=== PATIENT | female | born 1960 | race African-American/Black ===

== ENCOUNTER 2016-08-30 13:40 | Emergency (ER) | payer MEDICARE, MEDICAID ==
[~2016-08-30] VITALS: Ht 162.6 cm; Wt 129.0 kg
[~2016-08-30 13:40] MED LIST: DIVA-18 PO; OXYB5TAB11 PO
[2016-08-30 18:30] VITALS: BP 130/71
== END 2016-08-30 20:15 | disposition home or self-care (01) ==
LOC: ER 13:53
DX: M25.561 Pain in right knee (principal); G89.29 Other chronic pain; E11.9 Type 2 diabetes mellitus without complications; Z98.890 Other specified postprocedural states
CPT/HCPCS: 29505; 73562; 99284

== ENCOUNTER 2016-09-06 19:08 | Emergency (ER) | payer MEDICARE, MEDICAID ==
[~2016-09-06] VITALS: Ht 165.1 cm; Wt 127.0 kg
[2016-09-06] MEDS ORDERED: KETOROLAC 60MG/2ML VIAL IM ONE (22:45)
[2016-09-07 00:23] VITALS: BP 134/72
== END 2016-09-07 01:55 | disposition home or self-care (01) ==
LOC: ER 19:09
DX: M25.561 Pain in right knee (principal); G89.29 Other chronic pain; Z79.899 Other long term (current) drug therapy; J45.909 Unspecified asthma, uncomplicated; E11.9 Type 2 diabetes mellitus without complications
CPT/HCPCS: 73562; 96372; 99284; J1885; L1830

== ENCOUNTER 2016-09-22 20:30 | Emergency (ER) | payer MEDICARE, MEDICAID ==
[~2016-09-22] VITALS: Ht 165.1 cm; Wt 128.0 kg
[2016-09-22 21:26] VITALS: BP 134/76
== END 2016-09-22 21:40 | disposition left against medical advice (07) ==
LOC: ER 20:31
DX: M79.604 Pain in right leg (principal); Z79.899 Other long term (current) drug therapy; J45.909 Unspecified asthma, uncomplicated; E11.9 Type 2 diabetes mellitus without complications; Z53.21 Procedure and treatment not carried out due to patient leaving prior to being seen by health care provider

== ENCOUNTER 2016-10-03 09:05 | Emergency (ER) | payer MEDICARE, MEDICAID ==
[~2016-10-03] VITALS: Ht 162.6 cm; Wt 105.0 kg
[2016-10-03 09:07] VITALS: BP 142/89
[2016-10-03] MEDS ORDERED: SODIUM CHLORIDE 0.9% 1,000 ML IV ONE (09:44)
[2016-10-03] MEDS ORDERED: ONDANSETRON HCL 4MG/2ML VIAL IV ONE (09:45)
[2016-10-03 10:09] LABS: BASOPHILS % 1.3 % (0.0-2.0); EOSINOPHILS % 2.5 % (0.0-5.0); HEMOGLOBIN. 11.6 g/dL (12.0-16.0); LYMPHOCYTES % 49.4 % (20.0-50.0); MEAN CORPUSCULAR HEMOGLOBIN 28.4 pg (28.0-32.0); NEUTROPHILS % 39.8 % (40.0-76.0); PLATELET 268 x1000/uL (130-400); RED BLOOD CELL COUNT 4.07 mill/uL (4.2-5.4); RED CELL DISTRIBUTION WIDTH 15.7 % (11.6-14.6)
[2016-10-03 10:27] LABS: CARBON DIOXIDE 24 mEq/L (21-32); CHLORIDE 105 mEq/L (98-107); ETHANOL BLOOD < 10 mg/dL
[2016-10-03 11:28] LABS: CLARITY URINE CLEAR (CLEAR); COLOR URINE YELLOW (YELLOW); GLUCOSE URINE NEGATIVE (NEGATIVE); KETONES URINE NEGATIVE (NEGATIVE); LEUKOCYTE ESTERASE URINE NEGATIVE (NEGATIVE); NITRITE URINE POSITIVE (NEGATIVE); OCCULT BLOOD URINE NEGATIVE (NEGATIVE); PROTEIN URINE NEGATIVE (NEGATIVE); SPECIFIC GRAVITY URINE 1.026 (1.005-1.030); UROBILINOGEN URINE 0.2 E.U./dL (0.2-1.0)
[2016-10-03 11:57] LABS: *AMPHETAMINES SCREEN URINE NEGATIVE (NEGATIVE); *BARBITURATES SCREEN URINE NEGATIVE (NEGATIVE); *BENZODIAZEPINES SCREEN URINE NEGATIVE (NEGATIVE); *COCAINE SCREEN URINE NEGATIVE (NEGATIVE); CANNABINOID URINE SCREEN NEGATIVE (NEGATIVE); METHADONE URINE SCREEN NEGATIVE (NEGATIVE); OPIATES URINE SCREEN NEGATIVE (NEGATIVE); PHENCYCLIDINE URINE SCREEN NEGATIVE (NEGATIVE)
== END 2016-10-03 14:00 | disposition left against medical advice (07) ==
LOC: ER 09:21
DX: R45.851 Suicidal ideations (principal); R53.1 Weakness; R11.2 Nausea with vomiting, unspecified; E11.9 Type 2 diabetes mellitus without complications; J45.909 Unspecified asthma, uncomplicated
CPT/HCPCS: 36415; 80048; 80305; 81001; 84443; 85025; 93005; 96361; 96374; 99285; G0482; J2405; J7030

== ENCOUNTER 2016-12-12 15:19 | Emergency (ER) | payer MEDICARE, MEDICAID ==
[~2016-12-12] VITALS: Ht 170.2 cm; Wt 120.0 kg
[2016-12-12] MEDS ORDERED: KETOROLAC 60MG/2ML VIAL IM ONE (16:15)
[2016-12-12] MEDS ORDERED: METHOCARBAMOL 500MG TABLET PO ONE (16:15)
[2016-12-12 18:21] VITALS: BP 138/58
== END 2016-12-12 18:55 | disposition left against medical advice (07) ==
LOC: ER 15:46
DX: M79.661 Pain in right lower leg (principal); Z91.81 History of falling; E11.9 Type 2 diabetes mellitus without complications; J45.909 Unspecified asthma, uncomplicated
CPT/HCPCS: 99283; J1885

== ENCOUNTER 2017-05-18 10:52 | Emergency (ER) | payer BC, MEDICAID ==
[~2017-05-18] VITALS: Ht 165.1 cm; Wt 113.0 kg
[2017-05-18 12:42] VITALS: BP 154/78
== END 2017-05-18 13:51 | disposition left against medical advice (07) ==
LOC: ER 10:52
DX: M79.604 Pain in right leg (principal); Z53.21 Procedure and treatment not carried out due to patient leaving prior to being seen by health care provider

== ENCOUNTER 2017-06-15 00:02 | Emergency (ER) | payer MEDICARE, MEDICAID ==
[~2017-06-15] VITALS: Ht 162.6 cm; Wt 81.0 kg
[2017-06-15] MEDS ORDERED: KETOROLAC 30MG/ML VIAL IM ONE (06:45)
[2017-06-15 07:06] VITALS: BP 111/55
== END 2017-06-15 07:08 | disposition home or self-care (01) ==
LOC: ER 00:02
DX: M54.41 Lumbago with sciatica, right side (principal); E11.9 Type 2 diabetes mellitus without complications; J45.909 Unspecified asthma, uncomplicated; Z98.890 Other specified postprocedural states
CPT/HCPCS: 81025; 82962; 96372; 99283; J1885

== ENCOUNTER 2017-07-08 08:37 | Emergency (ER) | payer MEDICARE, MEDICAID ==
[~2017-07-08] VITALS: Ht 165.1 cm; Wt 77.0 kg
[2017-07-08 14:04] VITALS: BP 145/85
== END 2017-07-08 14:08 | disposition home or self-care (01) ==
LOC: ER 09:04
DX: J06.9 Acute upper respiratory infection, unspecified (principal); E11.9 Type 2 diabetes mellitus without complications; J45.909 Unspecified asthma, uncomplicated
CPT/HCPCS: 71045; 99283

== ENCOUNTER 2017-12-04 18:37 | Emergency (ER) | payer MEDICARE, MEDICAID ==
[~2017-12-04] VITALS: Ht 165.1 cm; Wt 91.0 kg
[2017-12-04] MEDS ORDERED: SODIUM CHLORIDE 0.9% 1,000 ML IV ONE (21:00)
[2017-12-04] MEDS ORDERED: DIPHENHYDRAMINE 50MG/ML VIAL IV ONE (21:15)
[2017-12-04] MEDS ORDERED: METOCLOPRAMIDE HCL 10MG/2ML VIAL IV ONE (21:15)
[2017-12-04] MEDS ORDERED: MECLIZINE 25MG TABLET PO ONE (21:15)
[2017-12-04] MEDS ORDERED: ACETAMINOPHEN 325MG TABLET PO ONE (21:15)
[2017-12-04 21:48] LABS: BASOPHILS % 0.9 % (0.0-2.0); EOSINOPHILS % 1.2 % (0.0-5.0); HEMATOCRIT. 36.6 % (36.0-48.0); HEMOGLOBIN. 12.1 g/dL (12.0-16.0); MEAN CORPUSCULAR HEMOGLOBIN 31.1 pg (28.0-32.0); MEAN CORPUSCULAR VOLUME 94.4 fL (81.0-99.0); MEAN PLATELET VOLUME 9.7 fl (7.4-10.4); MONOCYTES % 6.4 % (2.0-8.0); NEUTROPHILS % 36.5 % (40.0-76.0); PLATELET 194 x1000/uL (130-400); RED BLOOD CELL COUNT 3.88 mill/uL (4.2-5.4); RED CELL DISTRIBUTION WIDTH 13.2 % (11.6-14.6)
[2017-12-04 21:51] LABS: CHLORIDE 109 mEq/L (98-107)
[2017-12-05 05:39] VITALS: BP 130/67
== END 2017-12-05 05:41 | disposition home or self-care (01) ==
LOC: ER 18:37
DX: R51 Headache (principal); R42 Dizziness and giddiness; E11.9 Type 2 diabetes mellitus without complications
CPT/HCPCS: 36415; 70450; 80053; 82962; 85025; 93005; 96361; 96374; 96375; 99285; J1200; J2765; J7030; J8597

== ENCOUNTER 2018-04-03 00:01 | Inpatient (IN) | payer MEDICARE, MEDICAID ==
[~2018-04-03] VITALS: Ht 165.1 cm; Wt 95.7 kg
[2018-04-03] MEDS ORDERED: ASPIRIN 81MG TABLET PO ONE (02:45)
[2018-04-03 03:35] LABS: BASOPHILS % 0.5 % (0.0-2.0); EOSINOPHILS % 1.9 % (0.0-5.0); HEMATOCRIT. 35.7 % (36.0-48.0); HEMOGLOBIN. 11.8 g/dL (12.0-16.0); LYMPHOCYTES % 31.8 % (20.0-50.0); MEAN CORPUSCULAR HEMOGLOBIN 31.7 pg (28.0-32.0); MEAN CORPUSCULAR VOLUME 95.6 fL (81.0-99.0); MEAN PLATELET VOLUME 8.8 fl (7.4-10.4); MONOCYTES % 6.9 % (2.0-8.0); NEUTROPHILS % 58.9 % (40.0-76.0); PLATELET 245 x1000/uL (130-400); RED BLOOD CELL COUNT 3.74 mill/uL (4.2-5.4); RED CELL DISTRIBUTION WIDTH 13.5 % (11.6-14.6)
[2018-04-03 03:39] LABS: CHLORIDE 107 mEq/L (98-107)
[2018-04-03 04:39] LABS: PARTIAL THROMBOPLASTIN TIME 22.1 sec (23.4-31.0); PROTHROMBIN TIME 10.3 sec (9.1-11.1)
[2018-04-03] MEDS ORDERED: NITROGLYCERIN 0.4MG TABLET SL SL SCH (06:04)
[2018-04-03] MEDS ORDERED: CLONIDINE 0.1MG TABLET PO PRN (07:15)
[2018-04-03] MEDS ORDERED: ACETAMINOPHEN 325MG TABLET PO PRN (07:15)
[2018-04-03] MEDS ORDERED: ENOXAPARIN 40MG/0.4ML SYR SUBCUT SCH (07:15)
[2018-04-03] MEDS ORDERED: MAGNESIUM/ALUMINUM HYDROXIDE/SIMETHICONE 30ML UDC PO PRN (07:15)
[2018-04-03] MEDS ORDERED: HYDROCODONE/ACETAMINOPHEN 5/325MG TABLET PO PRN (07:15)
[2018-04-03] MEDS ORDERED: DOCUSATE SODIUM 100MG CAPSULE PO PRN (07:15)
[2018-04-03] MEDS ORDERED: ONDANSETRON HCL 4MG/2ML INJ IV PRN (07:15)
[2018-04-03 08:50] VITALS: BP 110/63
[2018-04-03] MEDS ORDERED: MORPHINE SULFATE 4 MG/ML CPJ (NOT FOR IM USE) IV PRN (09:15)
[2018-04-03 10:00] VITALS: BP 115/56
[2018-04-03] MEDS: ASPIRIN 81MG EC TABLET PO SCH (11:37)
[2018-04-03] MEDS: AMLODIPINE 10MG TABLET PO SCH (11:38)
[2018-04-03 12:00] VITALS: BP 116/64
[2018-04-03 16:00] VITALS: BP 136/69
[2018-04-03 16:24] LABS: CREATINE KINASE 207 IU/L (26-192)
[2018-04-03] MEDS: ENOXAPARIN 30MG/0.3ML SYR SUBCUT SCH (18:00)
[2018-04-03 20:00] VITALS: BP 106/52
[2018-04-03] MEDS: DIVALPROEX SODIUM 500MG ER TABLET PO SCH (21:00)
[2018-04-03] MEDS: OXYBUTYNIN CHLORIDE 5MG TABLET PO SCH (21:28)
[2018-04-04] VITALS: BP 98/57
[2018-04-04 00:54] LABS: CREATINE KINASE 127 IU/L (26-192)
[2018-04-04 04:00] VITALS: BP 112/73
[2018-04-04] MEDS: ENOXAPARIN 30MG/0.3ML SYR SUBCUT SCH (06:29)
[2018-04-04] MEDS ORDERED: REGADENOSON 0.4 MG/5 ML IV ONE (07:15)
[2018-04-04 07:39] LABS: BASOPHILS % 0.7 % (0.0-2.0); EOSINOPHILS % 1.6 % (0.0-5.0); HEMATOCRIT. 33.5 % (36.0-48.0); HEMOGLOBIN. 11.4 g/dL (12.0-16.0); LYMPHOCYTES % 54.6 % (20.0-50.0); MEAN CORPUSCULAR HEMOGLOBIN 32.4 pg (28.0-32.0); MEAN CORPUSCULAR VOLUME 95.1 fL (81.0-99.0); MEAN PLATELET VOLUME 8.9 fl (7.4-10.4); MONOCYTES % 8.1 % (2.0-8.0); PLATELET 292 x1000/uL (130-400); RED BLOOD CELL COUNT 3.52 mill/uL (4.2-5.4); RED CELL DISTRIBUTION WIDTH 13.4 % (11.6-14.6)
[2018-04-04 08:00] VITALS: BP 112/62
[2018-04-04 08:40] LABS: CHLORIDE 105 mEq/L (98-107)
[2018-04-04] MEDS: ASPIRIN 81MG EC TABLET PO SCH (08:47)
[2018-04-04] MEDS: DIVALPROEX SODIUM 500MG ER TABLET PO SCH (08:47)
[2018-04-04] MEDS: OXYBUTYNIN CHLORIDE 5MG TABLET PO SCH (08:47)
[2018-04-04] MEDS: AMLODIPINE 10MG TABLET PO SCH (08:48)
[2018-04-04 08:56] LABS: LDL CHOLESTEROL 97 mg/dL (5-100)
[2018-04-04 08:58] LABS: HDL CHOLESTEROL 62 mg/dL (40-59)
[2018-04-04 11:16] VITALS: BP 156/78
[2018-04-04 21:58] LABS: T4 FREE 0.94 ng/dL (0.76-1.46)
== END 2018-04-04 14:15 | disposition home or self-care (01) | DRG 206 ==
LOC: ER 00:01 → 7WST 06:10 → EDBEDREQTM 06:12 → EDBEDREQ 06:12 → SUPCPDRO 07:09 → ENRESERV 07:48
PROVIDERS: ADMIT Hospitalist; ATTEND Hospitalist
DX: M94.0 Chondrocostal junction syndrome [Tietze] (principal); E11.9 Type 2 diabetes mellitus without complications; I10 Essential (primary) hypertension; J45.909 Unspecified asthma, uncomplicated; E78.5 Hyperlipidemia, unspecified; R62.50 Unspecified lack of expected normal physiological development in childhood; Z79.899 Other long term (current) drug therapy; Z91.19 Patient's noncompliance with other medical treatment and regimen
CPT/HCPCS: 36415; 71045; 80061; 82550; 82962; 83036; 83880; 84439; 84443; 84484; 93005; 93306; 99285; J1650

== ENCOUNTER 2018-04-11 01:00 | Emergency (ER) | payer MEDICARE, MEDICAID ==
[~2018-04-11] VITALS: Ht 170.2 cm; Wt 91.0 kg
[2018-04-11 06:02] LABS: CLARITY URINE CLOUDY (CLEAR); COLOR URINE YELLOW (YELLOW); KETONES URINE TRACE (NEGATIVE); LEUKOCYTE ESTERASE URINE 2+ (NEGATIVE); NITRITE URINE POSITIVE (NEGATIVE); OCCULT BLOOD URINE NEGATIVE (NEGATIVE); PH URINE 5.5 (4.5-8.0); PROTEIN URINE NEGATIVE (NEGATIVE); SPECIFIC GRAVITY URINE 1.022 (1.005-1.030)
[2018-04-11] MEDS ORDERED: DIPHENHYDRAMINE 50MG/ML VIAL IV ONE (06:15)
[2018-04-11] MEDS ORDERED: SODIUM CHLORIDE 0.9% 1,000 ML IV ONE (06:15)
[2018-04-11] MEDS ORDERED: KETOROLAC 30MG/ML VIAL IV ONE (06:15)
[2018-04-11] MEDS ORDERED: METOCLOPRAMIDE HCL 10MG/2ML VIAL IV ONE (06:15)
[2018-04-11 09:17] VITALS: BP 128/79
== END 2018-04-11 09:30 | disposition home or self-care (01) ==
LOC: ER 01:51
DX: G43.909 Migraine, unspecified, not intractable, without status migrainosus (principal); G44.89 Other headache syndrome; N39.0 Urinary tract infection, site not specified; E11.9 Type 2 diabetes mellitus without complications; Z79.899 Other long term (current) drug therapy
CPT/HCPCS: 81003; 81025; 87077; 87086; 87186; 96374; 96375; 99283; J1200; J1885; J2765; J7030

== ENCOUNTER 2021-01-21 14:11 | Emergency (ER) | payer OTHER, MEDICAID ==
[~2021-01-21] VITALS: Ht 167.6 cm; Wt 113.0 kg
[~2021-01-21 14:11] MED LIST changes: -OXYB5TAB11 PO; +OXYB5TAB16 PO
[2021-01-21 16:25] LABS: CLARITY URINE CLEAR (CLEAR); COLOR URINE YELLOW (YELLOW); KETONES URINE NEGATIVE (NEGATIVE); LEUKOCYTE ESTERASE URINE NEGATIVE (NEGATIVE); NITRITE URINE NEGATIVE (NEGATIVE); OCCULT BLOOD URINE NEGATIVE (NEGATIVE); PROTEIN URINE NEGATIVE (NEGATIVE)
[2021-01-21 16:48] LABS: BASOPHILS % 0.7 % (0.0-2.0); EOSINOPHILS % 1.7 % (0.0-5.0); HEMOGLOBIN. 12.5 g/dL (12.0-16.0); LYMPHOCYTES % 46.3 % (20.0-50.0); MEAN CORPUSCULAR HEMOGLOBIN 30.1 pg (28.0-32.0); MEAN CORPUSCULAR VOLUME 89.5 fL (81.0-99.0); MONOCYTES % 6.8 % (2.0-8.0); NEUTROPHILS % 44.5 % (40.0-76.0); PLATELET 229 x1000/uL (130-400); RED BLOOD CELL COUNT 4.14 mill/uL (4.2-5.4); RED CELL DISTRIBUTION WIDTH 14.1 % (11.6-14.6)
[2021-01-21 16:55] LABS: CHLORIDE 101 mEq/L (98-107)
[2021-01-21 17:01] LABS: HCG SCREEN NEGATIVE
[2021-01-21 17:36] VITALS: BP 148/70
== END 2021-01-21 17:37 | disposition home or self-care (01) ==
LOC: ER 14:11
DX: R10.9 Unspecified abdominal pain (principal); J45.909 Unspecified asthma, uncomplicated; E11.9 Type 2 diabetes mellitus without complications; Z98.890 Other specified postprocedural states
CPT/HCPCS: 36415; 80053; 81003; 81025; 82962; 84703; 85025; 99283

== ENCOUNTER 2021-06-15 21:25 | Emergency (ER) | payer BC, MEDICAID, OTHER ==
[~2021-06-15] VITALS: Ht 167.6 cm; Wt 123.0 kg
[2021-06-15 21:30] VITALS: BP 130/74
[2021-06-16] MEDS ORDERED: ASPIRIN 81MG TABLET PO SCH (01:45)
[2021-06-16 02:17] LABS: BASOPHILS % 0.7 % (0.0-2.0); EOSINOPHILS % 1.4 % (0.0-5.0); HEMATOCRIT. 38.1 % (36.0-48.0); HEMOGLOBIN. 12.9 g/dL (12.0-16.0); LYMPHOCYTES % 43.9 % (20.0-50.0); MEAN CORPUSCULAR HEMOGLOBIN 29.8 pg (28.0-32.0); MEAN CORPUSCULAR VOLUME 87.9 fL (81.0-99.0); MEAN PLATELET VOLUME 10.5 fl (7.4-10.4); MONOCYTES % 6.7 % (2.0-8.0); NEUTROPHILS % 47.3 % (40.0-76.0); RED BLOOD CELL COUNT 4.33 mill/uL (4.2-5.4); RED CELL DISTRIBUTION WIDTH 14.3 % (11.6-14.6)
[2021-06-16 02:25] LABS: CHLORIDE 105 mEq/L (98-107)
[2021-06-16 02:30] LABS: ETHANOL BLOOD < 10 mg/dL
[2021-06-16 02:32] LABS: BETA HYDROXYBUTYRATE 0.1 mMol/L (0.0-0.3)
[2021-06-16 02:33] LABS: PLATELET 190 x1000/uL (130-400)
[2021-06-16] MEDS ORDERED: INSULIN LISPRO 100 UNITS/ML SUBCUT SCH (04:00)
== END 2021-06-16 04:59 | disposition home or self-care (01) ==
LOC: ER 21:25
DX: R07.89 Other chest pain (principal); E11.65 Type 2 diabetes mellitus with hyperglycemia; J45.909 Unspecified asthma, uncomplicated; Z98.890 Other specified postprocedural states
CPT/HCPCS: 36415; 71045; 80053; 80320; 82010; 82962; 83690; 83880; 84484; 85025; 99284; J1815; G0480

== ENCOUNTER 2021-10-13 16:38 | Emergency (ER) | payer MEDICAID, MEDICARE ==
[~2021-10-13] VITALS: Ht 167.6 cm; Wt 114.0 kg
[2021-10-13 17:08] VITALS: BP 169/93
[2021-10-13] MEDS ORDERED: HYDROCODONE/ACETAMINOPHEN 5/325MG TABLET PO ONE (17:45)
[2021-10-13] MEDS ORDERED: ACET-2708 MT (18:35)
== END 2021-10-13 19:39 | disposition home or self-care (01) ==
LOC: ER 16:38
DX: S93.491A Sprain of other ligament of right ankle, initial encounter (principal); M25.571 Pain in right ankle and joints of right foot; J45.909 Unspecified asthma, uncomplicated; E11.9 Type 2 diabetes mellitus without complications; V03.00XA Pedestrian on foot injured in collision with car, pick-up truck or van in nontraffic accident, initial encounter; Y93.01 Activity, walking, marching and hiking; Y92.488 Other paved roadways as the place of occurrence of the external cause; Z98.890 Other specified postprocedural states
CPT/HCPCS: 29515; 73610; 99283

== ENCOUNTER 2022-04-03 12:37 | Emergency (ER) | payer MEDICARE, MEDICAID ==
[~2022-04-03] VITALS: Ht 167.6 cm; Wt 125.0 kg
[~2022-04-03 12:37] MED LIST changes: +ACET-2708 MT
[2022-04-03] MEDS ORDERED: IBUPROFEN 600MG TABLET PO ONE (13:15)
[2022-04-03 13:24] VITALS: BP 135/60
[2022-04-03] MEDS ORDERED: IBUP-2029 MT (16:04)
== END 2022-04-03 17:37 | disposition home or self-care (01) ==
LOC: ER 12:37
DX: M25.571 Pain in right ankle and joints of right foot (principal); E11.9 Type 2 diabetes mellitus without complications; I10 Essential (primary) hypertension; J45.909 Unspecified asthma, uncomplicated; Z98.890 Other specified postprocedural states
CPT/HCPCS: 73600; 99283

== ENCOUNTER 2022-07-17 13:52 | Emergency (ER) | payer OTHER, MEDICAID ==
[~2022-07-17] VITALS: Ht 167.6 cm; Wt 82.0 kg
[~2022-07-17 13:52] MED LIST changes: +IBUP-2029 MT
[2022-07-17] MEDS ORDERED: IBUPROFEN 600MG TABLET PO STA (14:30)
[2022-07-17 14:47] VITALS: BP 187/97
[2022-07-17 15:28] LABS: BASOPHILS % 0.5 % (0.0-2.0); EOSINOPHILS % 0.9 % (0.0-5.0); HEMATOCRIT. 41.8 % (36.0-48.0); HEMOGLOBIN. 13.8 g/dL (12.0-16.0); LYMPHOCYTES % 31.2 % (20.0-50.0); MEAN CORPUSCULAR HEMOGLOBIN 29.1 pg (28.0-32.0); MEAN CORPUSCULAR VOLUME 88.1 fL (81.0-99.0); MEAN PLATELET VOLUME 9.7 fl (7.4-10.4); MONOCYTES % 4.9 % (2.0-8.0); NEUTROPHILS % 62.5 % (40.0-76.0); PLATELET 239 x1000/uL (130-400); RED BLOOD CELL COUNT 4.75 mill/uL (4.2-5.4); RED CELL DISTRIBUTION WIDTH 13.6 % (11.6-14.6)
[2022-07-17 15:34] LABS: INR 0.9; PROTHROMBIN TIME 10.1 sec (9.6-11.0)
[2022-07-17 15:41] LABS: CHLORIDE 100 mEq/L (98-107)
[2022-07-17] MEDS ORDERED: INSULIN REGULAR (HUMULIN R) 300UNITS/3ML VIAL SUBCUT ONE (17:00)
[2022-07-17] MEDS ORDERED: SODIUM CHLORIDE 0.9% 1,000 ML IV ONE (17:00)
[2022-07-17 20:25] LABS: CLARITY URINE CLOUDY (CLEAR); COLOR URINE YELLOW (YELLOW); KETONES URINE NEGATIVE (NEGATIVE); LEUKOCYTE ESTERASE URINE NEGATIVE (NEGATIVE); NITRITE URINE NEGATIVE (NEGATIVE); OCCULT BLOOD URINE 3+ (NEGATIVE); PROTEIN URINE NEGATIVE (NEGATIVE); SPECIFIC GRAVITY URINE 1.041 (1.005-1.030); UROBILINOGEN URINE 0.2 E.U./dL (0.2-1.0)
== END 2022-07-17 22:15 | disposition home or self-care (01) ==
LOC: ER 14:22
DX: D25.9 Leiomyoma of uterus, unspecified (principal); R93.89 Abnormal findings on diagnostic imaging of other specified body structures; E11.65 Type 2 diabetes mellitus with hyperglycemia; I10 Essential (primary) hypertension; J45.909 Unspecified asthma, uncomplicated; Z98.890 Other specified postprocedural states
CPT/HCPCS: 36415; 76830; 76856; 80053; 81003; 82962; 85025; 85610; 86850; 86900; 86901; 96360; 96361; 96372; 99285; J1815; J7030

== ENCOUNTER 2022-11-29 18:16 | Inpatient (IN) | payer OTHER, MEDICAID ==
[~2022-11-29] VITALS: Ht 167.6 cm; Wt 113.4 kg
[2022-11-29] MEDS ORDERED: INSULIN REGULAR (HUMULIN R) 300UNITS/3ML VIAL IV ONE (20:00)
[2022-11-29] MEDS ORDERED: SODIUM CHLORIDE 0.9% 1,000 ML IV ONE (20:00)
[2022-11-29 20:25] LABS: BASOPHILS % 0.8 % (0.0-2.0); EOSINOPHILS % 1.5 % (0.0-5.0); HEMATOCRIT. 36.2 % (36.0-48.0); HEMOGLOBIN. 12.1 g/dL (12.0-16.0); LYMPHOCYTES % 44.8 % (20.0-50.0); MEAN CORPUSCULAR HEMOGLOBIN 29.5 pg (28.0-32.0); MONOCYTES % 5.3 % (2.0-8.0); NEUTROPHILS % 47.6 % (40.0-76.0); PLATELET 261 x1000/uL (130-400); RED BLOOD CELL COUNT 4.11 mill/uL (4.2-5.4); RED CELL DISTRIBUTION WIDTH 13.5 % (11.6-14.6)
[2022-11-29 20:34] LABS: CHLORIDE 105 mEq/L (98-107)
[2022-11-29 23:47] LABS: CLARITY URINE CLEAR (CLEAR); COLOR URINE YELLOW (YELLOW); KETONES URINE NEGATIVE (NEGATIVE); LEUKOCYTE ESTERASE URINE NEGATIVE (NEGATIVE); NITRITE URINE POSITIVE (NEGATIVE); OCCULT BLOOD URINE NEGATIVE (NEGATIVE); PH URINE 5.5 (4.5-8.0); PROTEIN URINE NEGATIVE (NEGATIVE); UROBILINOGEN URINE 0.2 E.U./dL (0.2-1.0)
[2022-11-30] MEDS ORDERED: CEFTRIAXONE 2GM/50ML (ADDEASE) 50 ML IV ONE (01:00)
[2022-11-30] MEDS ORDERED: CEFTRIAXONE 2 G in DEXTROSE 5% WATER 50 ML IV NR (01:00)
[2022-11-30 05:00] VITALS: BP_SYST 120; BP_SYST 122; BP_DIAS 63; PULSE 75; RESP 20; TEMP 97.9
[2022-11-30 08:00] VITALS: BP 119/73; PULSE 82; RESP 18; TEMP 97
[2022-11-30] MEDS ORDERED: DEXTROSE 50% WATER 50ML SYRINGE IV PRN ×2 (08:00→09:15)
[2022-11-30] MEDS: BLOOD SUGAR DIAGNOSTIC STRIP TEST SCH ×4 (09:01→17:26)
[2022-11-30] MEDS ORDERED: INSULIN LISPRO 100 UNITS/ML SUBCUT SCH (09:30)
[2022-11-30 10:46] LABS: HEMATOCRIT 37.7 % (36.0-48.0); HEMOGLOBIN 12.7 g/dL (12.0-16.0); MEAN CORPUSCULAR HEMOGLOBIN 29.8 pg (28.0-32.0); MEAN CORPUSCULAR VOLUME 88.7 fL (81.0-99.0); PLATELET 239 x1000/uL (130-400); RED BLOOD CELL COUNT 4.25 mill/uL (4.2-5.4); RED CELL DISTRIBUTION WIDTH 13.5 % (11.6-14.6)
[2022-11-30 10:57] LABS: CHLORIDE 106 mEq/L (98-107)
[2022-11-30] MEDS ORDERED: DOCUSATE SODIUM 100MG CAPSULE PO PRN (11:15)
[2022-11-30] MEDS ORDERED: IPRATROPIUM/ALBUTEROL 0.5-3(2.5)MG/3ML NEB HHN PRN (11:15)
[2022-11-30] MEDS ORDERED: ONDANSETRON HCL 4MG/2ML INJ IV PRN (11:15)
[2022-11-30] MEDS ORDERED: ACETAMINOPHEN 325MG TABLET PO PRN ×2 (11:15)
[2022-11-30] MEDS: INSULIN LISPRO 100 UNITS/ML SUBCUT SCH ×2 (11:45→17:46)
[2022-11-30 12:00] VITALS: BP 122/76; PULSE 80; RESP 18; TEMP 97.2
[2022-11-30] MEDS ORDERED: FLUCONAZOLE 200 MG/100ML BAG 100 ML IV NR (12:30)
[2022-11-30] MEDS ORDERED: INSULIN LISPRO 100 UNITS/ML SUBCUT NR ×2 (12:45→15:15)
[2022-11-30 13:35] LABS: HEPATITIS B SURFACE ANTIGEN NEGATIVE
[2022-11-30 16:00] VITALS: BP 122/79; PULSE 81; RESP 18; TEMP 97.9
[2022-11-30 18:36] VITALS: BP 122/79; PULSE 81; TEMP 97.9; O2SAT 97
[2022-11-30 20:05] VITALS: BP 122/73; PULSE 85; RESP 20; TEMP 97.2
[2022-11-30] MEDS ORDERED: CEFTRIAXONE 1,000 MG in DEXTROSE 5% WATER 50 ML IV SCH (23:00)
== END 2022-11-30 19:58 | disposition home or self-care (01) | DRG 758 ==
LOC: ER 18:16 → MICUSO 11-30 00:47 → 4WST 11-30 04:52
PROVIDERS: ADMIT Internal Medicine; ATTEND Internal Medicine
DX: B37.49 Other urogenital candidiasis (principal); Z68.41 Body mass index [BMI] 40.0-44.9, adult; E11.65 Type 2 diabetes mellitus with hyperglycemia; E66.9 Obesity, unspecified; I10 Essential (primary) hypertension; J45.909 Unspecified asthma, uncomplicated; Z79.4 Long term (current) use of insulin; Z79.84 Long term (current) use of oral hypoglycemic drugs
CPT/HCPCS: 36415; 80053; 81003; 82962; 83036; 85025; 85027; 86803; 87340; 99285; C1893; J0696; J1450; J1815; J7030; J7060

== ENCOUNTER 2023-04-21 17:29 | Emergency (ER) | payer OTHER, MEDICAID ==
[~2023-04-21] VITALS: Ht 172.7 cm; Wt 90.0 kg
[~2023-04-21 17:29] MED LIST changes: +NAPR-681 MT; -OXYB5TAB16 PO; +OXYB5TAB21 PO
[2023-04-21 17:36] VITALS: O2SAT 97
[2023-04-21] MEDS ORDERED: SODIUM CHLORIDE 0.9% 1,000 ML IV ONE (18:15)
[2023-04-21 20:23] LABS: BASOPHILS % 0.8 % (0.0-2.0); EOSINOPHILS % 2.2 % (0.0-5.0); HEMATOCRIT. 39.6 % (36.0-48.0); HEMOGLOBIN. 12.9 g/dL (12.0-16.0); LYMPHOCYTES % 41.9 % (20.0-50.0); MEAN CORPUSCULAR HEMOGLOBIN 29.3 pg (28.0-32.0); MEAN CORPUSCULAR HGB CONC 32.5 g/dL (31.0-37.0); MEAN PLATELET VOLUME 8.6 fl (7.4-10.4); MONOCYTES % 5.9 % (2.0-8.0); NEUTROPHILS % 49.2 % (40.0-76.0); PLATELET 272 x1000/uL (130-400); RED CELL DISTRIBUTION WIDTH 13.2 % (11.6-14.6); WHITE BLOOD COUNT 7.2 x1000/uL (4.5-11.0)
[2023-04-21 20:41] LABS: ALANINE AMINOTRANSFERASE 14 IU/L (10-49); ALBUMIN 3.9 g/dL (3.2-4.8); ASPARTATE AMINOTRANSFERASE 13 IU/L (<34); BETA HYDROXYBUTYRATE 0.1 mMol/L (0.0-0.3); BILIRUBIN TOTAL 0.2 mg/dL (0.1-1.0); CALCIUM 9.5 mg/dL (8.7-10.4); CARBON DIOXIDE 29 mEq/L (21-32); CHLORIDE 101 mEq/L (98-107); GLUCOSE 364 mg/dL (70-105); POTASSIUM 4.3 mEq/L (3.5-5.1); PROTEIN TOTAL 7.3 g/dL (6.0-8.3); SODIUM 135 mEq/L (136-145); UREA NITROGEN BLOOD 13 mg/dL (9-23)
[2023-04-21 20:48] VITALS: BP 142/79; PULSE 99; RESP 18; TEMP 97.9
[2023-04-21] MEDS ORDERED: IBUPROFEN 400MG TABLET PO ONE (22:00)
== END 2023-04-21 22:30 | disposition home or self-care (01) ==
LOC: ER 17:29
DX: S99.911A Unspecified injury of right ankle, initial encounter (principal); J45.909 Unspecified asthma, uncomplicated; E11.9 Type 2 diabetes mellitus without complications; I10 Essential (primary) hypertension; Z79.899 Other long term (current) drug therapy; Z98.890 Other specified postprocedural states; X58.XXXA Exposure to other specified factors, initial encounter; Y93.89 Activity, other specified; Y92.89 Other specified places as the place of occurrence of the external cause; Y99.8 Other external cause status
CPT/HCPCS: 99284; 71045; 80053; 82010; 85025; 36415; J7030

== ENCOUNTER 2023-05-01 13:44 | Emergency (ER) | payer OTHER, MEDICAID ==
[~2023-05-01] VITALS: Ht 167.6 cm; Wt 100.0 kg
[2023-05-01 14:14] VITALS: O2SAT 99
[2023-05-01] MEDS ORDERED: CYCLOBENZAPRINE 10MG TABLET PO ONE (18:00)
[2023-05-01] MEDS ORDERED: KETOROLAC 60MG/2ML VIAL IM ONE (18:00)
[2023-05-01] MEDS ORDERED: IBUP-2028 MT (19:14)
[2023-05-01] MEDS ORDERED: CYCL10TA21 MT (19:14)
[2023-05-01 19:17] VITALS: BP 143/87; PULSE 88; RESP 18; TEMP 98.3
== END 2023-05-01 19:19 | disposition home or self-care (01) ==
LOC: ER 13:44
DX: M54.9 Dorsalgia, unspecified (principal); I10 Essential (primary) hypertension; E11.9 Type 2 diabetes mellitus without complications; J45.909 Unspecified asthma, uncomplicated; Z98.890 Other specified postprocedural states
CPT/HCPCS: 99283; 96372; J1885

== ENCOUNTER 2025-03-05 18:13 | Emergency (ER) | payer MEDICAID ==
[~2025-03-05] VITALS: Ht 170.2 cm; Wt 78.0 kg
[~2025-03-05 18:13] MED LIST changes: +CYCL10TA21 MT; +IBUP-1455 MT; +IBUP-2028 MT; -IBUP-2029 MT
[2025-03-05 18:19] VITALS: O2SAT 99
[2025-03-05] MEDS ORDERED: DICL100G58 TP (19:34)
[2025-03-05] MEDS: KETOROLAC 30MG/ML VIAL IM ONE (19:49)
[2025-03-05 19:53] VITALS: BP 149/72; PULSE 86; RESP 18; TEMP 36.7; O2SAT 98
== END 2025-03-05 19:54 | disposition home or self-care (01) ==
LOC: ER 18:13
DX: S93.401A Sprain of unspecified ligament of right ankle, initial encounter (principal); E11.9 Type 2 diabetes mellitus without complications; I10 Essential (primary) hypertension; J45.909 Unspecified asthma, uncomplicated; M19.90 Unspecified osteoarthritis, unspecified site; X58.XXXA Exposure to other specified factors, initial encounter; Y93.89 Activity, other specified; Y92.89 Other specified places as the place of occurrence of the external cause; Y99.8 Other external cause status
CPT/HCPCS: 99283; 73610; 96372; J1885; A6449